=== PATIENT | male | born 1935 | race Caucasian/White ===

== ENCOUNTER 2017-07-15 01:12 | Emergency (ER) | payer MEDICARE ==
[2017-07-15 01:45] LABS: BASOPHILS 0 % (0-2); EOSINOPHILS 0.5 % (0-7); HEMATOCRIT 28.6 % (42.0-54.0); HEMOGLOBIN 9.3 g/dL (13.5-17.5); IMMATURE GRANULOCYTES 0.7 % (0-5); LYMPHOCYTES 36.3 % (15-50); MCH 35.5 pg (26.0-34.0); MCHC 32.5 g/dL (31.0-37.0); MCV 109.2 fL (80.0-100.0); MEAN PLATELET VOLUME 9.5 fL (7.4-10.4); MONOCYTES 5.4 % (2-11); NEUTROPHILS 57.1 % (40-80); PLATELET COUNT 322 10x3/uL (130-400); RBC 2.62 10x6/uL (4.20-6.10); RDW 16.9 % (11.5-14.5); WBC 5.6 10x3/uL (4.8-10.8)
[2017-07-15 01:58] LABS: ALBUMIN 3.4 g/dL (3.4-5.0); ALKALINE PHOSPHATASE 222 U/L (46-116); ALT (SGPT) 51 U/L (10-68); BILIRUBIN - TOTAL 0.42 mg/dL (0.2-1.3); CALC OSMOLALITY 285 mosm/kg (275-300); CALCIUM 8.7 mg/dL (8.5-10.1); CARBON DIOXIDE 28.2 mmol/L (21.0-32.0); CHLORIDE - SERUM 103 mmol/L (98-107); CREATININE - SERUM 1.6 mg/dL (0.6-1.3); GLUCOSE 149 mg/dL (74-106); POTASSIUM - SERUM 4.4 mmol/L (3.5-5.1); SODIUM 140 mmol/L (136-145); UREA NITROGEN 25 mg/dL (7-18); eGFR NON AFRICAN AMERICAN 44 mL/min (90-120)
[2017-07-15 02:05] LABS: AMYLASE - SERUM 140 U/L (25-115); CREATINE KINASE 119 UL (21-232); LIPASE 525 U/L (73-393); PRO BNP 2961 pg/mL (0-450); TROPONIN-I < 0.017 ng/mL (0.000-0.060)
[2017-07-15 03:32] LABS: APPEARANCE CLEAR (CLEAR); COLOR YELLOW (YELLOW)
[2017-07-15 03:33] LABS: BILIRUBIN NEGATIVE (NEGATIVE); GLUCOSE NEGATIVE (NEGATIVE); KETONE NEGATIVE (NEGATIVE); NITRITE NEGATIVE (NEGATIVE); PROTEIN NEGATIVE (NEGATIVE); SPECIFIC GRAVITY 1.015 (1.005-1.020); UROBILINOGEN NORMAL (NORMAL)
== END 2017-07-15 04:25 | disposition home or self-care (01) ==
LOC: D.ER 01:12
PROVIDERS: Family Medicine
DX: N28.9 Disorder of kidney and ureter, unspecified (principal); D64.9 Anemia, unspecified; I50.9 Heart failure, unspecified